=== PATIENT | male | born 1995 | race Caucasian/White ===

== ENCOUNTER 2017-02-27 04:18 | Emergency (ER) | payer BC ==
--- NOTE | 2017-02-27 07:20 | ER ---
ADMIT: 02/27/2017 RM/LOC: ER [facility] MR#: [id number] [facility] [id number] SEKOU CHAVEZ MAI [address] [place] [address] Emergency Room Report SEX: M AGE: 21 : 1995 DATE: 02/27/2017 The patient is a 21-year-old male with chronic anxiety, hyperventilation syndrome, has been treated in the past with Xanax. Recent suicide attempt. Currently, states he is under a great deal of stress between family and work. Exam remarkable for nontoxic, afebrile male, poor eye contact, neutral mood. Denies suicidal ideation. Given Xanax with marked improvement of symptoms. Follow up with Dr. Muhammad as needed. Jermaine Kc MD/ debra JOB #: [id number] CC: Jermaine Kc MD, Attending Physician Phan Muhammad MD
== END 2017-02-27 05:26 | disposition home or self-care (01) ==
LOC: ER 04:18
DX: F41.0 Panic disorder [episodic paroxysmal anxiety] (principal); Z90.49 Acquired absence of other specified parts of digestive tract; Z79.899 Other long term (current) drug therapy; Z98.890 Other specified postprocedural states; Z88.8 Allergy status to other drugs, medicaments and biological substances